=== PATIENT | female | born 1970 | race Hispanic/Latino ===

== ENCOUNTER 2022-06-03 14:26 | Inpatient (IN) | payer OTHER ==
[~2022-06-03] VITALS: Ht 157.5 cm; Wt 104.2 kg
[2022-06-03 14:54] LABS: BASOPHILS % (AUTO) 0.5 % (0.0-5.0); EOSINOPHILS % (AUTO) 3.5 % (0.0-8.0); HEMATOCRIT 40.8 % (36-48); LYMPHOCYTES % (AUTO) 31.3 % (21.0-51.0); MEAN CORPUSCULAR HEMOGLOBIN 28.3 pg (27.0-33.0); MEAN CORPUSCULAR HGB CONC 32.4 g/dL (32.0-36.0); MEAN CORPUSCULAR VOLUME 87.6 fL (79-99); MONOCYTES % (AUTO) 4.5 % (3.0-13.0); PLATELET COUNT (AUTO) 309 K/uL (130-400); RED BLOOD CELL COUNT(AUTO) 4.66 MIL/uL (4.00-5.50); RED CELL DISTRIBUTION WIDTH 13.2 % (11.0-15.5); WHITE BLOOD COUNT (AUTO) 9.6 K/uL (4.8-10.8)
[2022-06-03 15:04] LABS: CREATININE 1.9 mg/dL (0.5-1.5); POTASSIUM 4.3 mmol/L (3.5-5.1)
[2022-06-03 15:07] LABS: INR 0.94 (0.85-1.15); PROTHROMBIN TIME 10.3 SEC (9.6-11.6)
[2022-06-03 15:08] LABS: PARTIAL THROMBOPLASTIN TIME 20.9 SEC (26.3-35.5)
[2022-06-03 15:09] LABS: TOTAL PROTEIN, SERUM 7.5 g/dL (6.0-8.3)
[2022-06-03 15:30] LABS: B-TYPE NATRIURETIC PEPTIDE 6 pg/mL (0-100)
[2022-06-03] MEDS ORDERED: MORPHINE 4 MG SYG IV PRN (19:00)
[2022-06-03] MEDS ORDERED: HYDROCODONE/ACETAMINOPHEN 5/325 MG TAB PO PRN (19:00)
[2022-06-03] MEDS: NITROGLYCERIN 1GM OINT 1 INCH/1GM TD SCH (19:00)
[2022-06-03] MEDS ORDERED: ACETAMINOPHEN 325 MG TAB PO PRN (19:00)
[2022-06-03] MEDS ORDERED: ONDANSETRON 4MG INJ IV PRN (19:00)
[2022-06-03] MEDS ORDERED: 0.9%NACL 1000ML 1,000 ML IV SCH ×2 (19:00)
[2022-06-03] MEDS ORDERED: ASPIRIN 81MG CHEW TAB PO ONE (19:00)
[2022-06-03] MEDS ORDERED: ACETAMINOPHEN 325 MG TAB PO ONE (21:00)
[2022-06-03] MEDS ORDERED: DICYCLOMINE HCL 10 MG/5 ML ML PO ONE (21:00)
[2022-06-03] MEDS: HEPARIN 5,000 UNIT VIAL SQ SCH (21:00)
[2022-06-03] MEDS ORDERED: MAG/ALUM/SIMETH 30 ML UDCUP PO ONE (21:00)
[2022-06-03] MEDS ORDERED: LIDOCAINE HCL 2% VISCOUS 15 ML UDCUP PO ONE (21:00)
[2022-06-03] MEDS: INSULIN HUMULIN R 100 UNIT/ML 3ML SQ SCH (21:00)
[2022-06-03] MEDS ORDERED: SUCRALFATE 1 GM TABLET PO SCH (21:00)
[2022-06-04 00:27] VITALS: BP 152/79
[2022-06-04] MEDS ORDERED: BYDUREON BCISE SQ (00:46)
[2022-06-04] MEDS ORDERED: HUMU (00:49)
[2022-06-04] MEDS ORDERED: INSU100V12 SQ (00:49)
[2022-06-04] MEDS ORDERED: HUMULIN R (00:50)
[2022-06-04] MEDS ORDERED: ERGO500093 PO (00:56)
[2022-06-04] MEDS ORDERED: SITA100T12 PO (00:56)
[2022-06-04] MEDS ORDERED: BUME2TAB5 PO (00:56)
[2022-06-04] MEDS ORDERED: LOSA25TA41 PO (00:56)
[2022-06-04] MEDS ORDERED: GLIP10TA9 PO (00:56)
[2022-06-04] MEDS ORDERED: METF-446 PO (00:56)
[2022-06-04] MEDS ORDERED: METH-387 PO (00:56)
[2022-06-04] MEDS ORDERED: ATOR20TA PO (00:56)
[2022-06-04] MEDS ORDERED: GABA600T10 PO (00:56)
[2022-06-04] MEDS: NITROGLYCERIN 1GM OINT 1 INCH/1GM TD SCH (03:11)
[2022-06-04 04:00] VITALS: BP 164/79
[2022-06-04 06:18] LABS: BASOPHILS % (AUTO) 0.4 % (0.0-5.0); EOSINOPHILS % (AUTO) 3.7 % (0.0-8.0); HEMATOCRIT 38.9 % (36-48); LYMPHOCYTES % (AUTO) 50.9 % (21.0-51.0); MEAN CORPUSCULAR HEMOGLOBIN 28.1 pg (27.0-33.0); MEAN CORPUSCULAR HGB CONC 31.6 g/dL (32.0-36.0); MONOCYTES % (AUTO) 6.5 % (3.0-13.0); NEUTROPHILS % (AUTO) 38.5 % (40.0-77.0); PLATELET COUNT (AUTO) 280 K/uL (130-400); RED BLOOD CELL COUNT(AUTO) 4.37 MIL/uL (4.00-5.50); RED CELL DISTRIBUTION WIDTH 13.2 % (11.0-15.5); WHITE BLOOD COUNT (AUTO) 7.3 K/uL (4.8-10.8)
[2022-06-04 06:33] LABS: HEMOGLOBIN A1C 9.5 % (4.0-6.0)
[2022-06-04] MEDS: INSULIN HUMULIN R 100 UNIT/ML 3ML SQ SCH (06:33)
[2022-06-04 06:48] LABS: CREATININE 1.4 mg/dL (0.5-1.5); MAGNESIUM 2.2 mg/dL (1.80-2.40); PHOSPHORUS 3.4 mg/dL (2.5-4.9)
[2022-06-04] MEDS ORDERED: DEXTROSE 50%-WATER 50 ML DISP.SYRIN IV PRN (07:30)
[2022-06-04] MEDS ORDERED: INSULIN HUMULIN R 100 UNIT/ML 3ML SQ SCH (07:30)
[2022-06-04] MEDS ORDERED: GLUCAGON 1MG KIT 1 MG ML IM PRN (07:30)
[2022-06-04 08:00] VITALS: BP 147/81
[2022-06-04] MEDS: HEPARIN 5,000 UNIT VIAL SQ SCH (08:21)
[2022-06-04] MEDS ORDERED: FAMOTIDINE 20MG VIAL IV SCH (09:00)
[2022-06-04] MEDS ORDERED: ASPIRIN 81MG CHEW TAB PO SCH (09:00)
== END 2022-06-04 11:15 | disposition home or self-care (01) | DRG 313 ==
LOC: EDH 14:26 → EDHIP 14:27 → 2DH 06-04 01:15
PROVIDERS: ADMIT Hospitalist; ATTEND Hospitalist
DX: R07.89 Other chest pain (principal); N17.9 Acute kidney failure, unspecified; Z68.41 Body mass index [BMI] 40.0-44.9, adult; Z20.822 Contact with and (suspected) exposure to COVID-19; Z90.710 Acquired absence of both cervix and uterus; Z90.49 Acquired absence of other specified parts of digestive tract; E66.01 Morbid (severe) obesity due to excess calories; E11.65 Type 2 diabetes mellitus with hyperglycemia; I25.2 Old myocardial infarction; K29.70 Gastritis, unspecified, without bleeding; E11.22 Type 2 diabetes mellitus with diabetic chronic kidney disease; I12.9 Hypertensive chronic kidney disease with stage 1 through stage 4 chronic kidney disease, or unspecified chronic kidney disease; N18.32 Chronic kidney disease, stage 3b
CPT/HCPCS: 36415; 71045; 78582; 80048; 80053; 82550; 82948; 83036; 83735; 83880; 84100; 84484; 85025; 85378; 85610; 85730; 87635; 87804; 93005; 93970; A9540; A9558; C9803; G0378; J1644; J1815; J2270; J3490; J7030